=== PATIENT | female | born 1975 | race American Indian/Alaskan Native ===

== ENCOUNTER 2020-10-13 12:19 | Emergency (ER) | payer BC ==
--- NOTE | 2020-10-13 13:05 | Event Note ---
ED Screening Note Date of service: 10/13/20 Time: 13:04 ED Screening Note: 44-year-old female patient presents to the emergency department with complaints of subjective fever, nausea, and bilateral groin pain/swelling starting 3 days ago. Symptoms were preceded by sore throat, which has since resolved. Last menstrual period was September 27. General: Awake, appropriately interactive, no acute distress. Neck: Supple. Full range of motion intact. Cardiovascular: Normal peripheral perfusion. Pulmonary: No respiratory distress. Patient is speaking normally without use of accessory muscles. Skin: No apparent rashes or lesions. Neurological: No facial asymmetry. Speech is clear. Follows commands. Patient is alert and oriented. Musculoskeletal: Moves all four extremities spontaneously with normal range of motion. Psych: Cooperative. Appropriate mood and affect. Urinalysis and hCG ordered; decision to pursue further diagnostic work-up deferred to additional ED providers following comprehensive physical exam. I have greeted and performed a focused rapid initial assessment of this patient. A comprehensive ED assessment and evaluation of the patient, analysis of all test results, and completion of the medical decision-making process will be conducted by additional ED providers. This initial assessment/diagnostic orders/clinical plan/treatment(s) is/are subject to change based on patients health status, clinical progression and re-assessment. Further treatment and workup at subsequent clinical provider's discretion. Patient/guardian urged not to elope from the ED as their condition may be serious if not clinically assessed and managed.
[2020-10-13 14:42] LABS: Bilirubin,Urine NEG (Negative); Blood,Urine NEG (Negative); Color,Urine Yellow (Yellow); Mucus,Urine 2+ /HPF
[2020-10-13 14:43] LABS: HCG Qualitative,Urine Negative (Negative)
--- NOTE | 2020-10-13 17:15 | Emergency Department Report ---
ED General Adult HPI - General Chief complaint: Pain General Stated complaint: GROIN PAIN, ABD PAIN Time Seen by Provider: 10/13/20 16:51 Source: patient Mode of arrival: Ambulatory Limitations: No Limitations - History of Present Illness Initial comments: 44-year-old obese -[place] female [facility] emerge department complaining of initial pain to her adenoids with tonsillar lymphadenopathy and discomfort on yesterday which spontaneously resolved. Now she reports having suprapubic discomfort and and inguinal tenderness with some lymphadenopathy and flank pain. States the pain pain started earlier this morning followed by the urinary symptoms she reports no hematuria no fevers, chills, sweats, no palpitations, no chest pain. Severity scale (0 -10): 8 Consistency: constant Improves with: none Worsens with: none Associated Symptoms: denies: diaphoresis, fever/chills, rash, seizure, shortness of breath, syncope, weakness - Related Data Allergies Allergy/AdvReac Type Severity Reaction Status Date / Time No Known Allergies Allergy Unverified 10/13/20 12:51 ED Review of Systems ROS: Stated complaint: GROIN PAIN, ABD PAIN Other details as noted in HPI Comment: All other systems reviewed and negative ED Past Medical Hx - Past Medical History Previous Medical History?: Yes Hx Hypertension: Yes - Surgical History Past Surgical History?: Yes Hx Appendectomy: Yes Additional Surgical History: Tubaligation - Social History Smoking Status: Current Every Day Smoker Substance Use Type: Alcohol, Marijuana ED Physical Exam - General Limitations: No Limitations General appearance: alert, in no apparent distress - Head Head exam: Present: atraumatic, normocephalic - Eye Eye exam: Present: normal appearance - ENT ENT exam: Present: mucous membranes moist - Neck Neck exam: Present: normal inspection - Respiratory Respiratory exam: Present: normal lung sounds bilaterally. Absent: respiratory distress - Cardiovascular Cardiovascular Exam: Present: regular rate, normal rhythm. Absent: systolic murmur, diastolic murmur, rubs, gallop - GI/Abdominal GI/Abdominal exam: Present: soft, tenderness (. No Rovsing, no Reyes Gomez no note no Mehta sign no tenderness at McBurney's. No [place] sign), normal bowel sounds - Extremities Exam Extremities exam: Present: normal inspection - Back Exam Back exam: Present: normal inspection - Neurological Exam Neurological exam: Present: alert, oriented X3 - Psychiatric Psychiatric exam: Present: normal affect, normal mood - Skin Skin exam: Present: warm, dry, intact, normal color. Absent: rash ED Course Vital Signs 10/13/20 12:52 Temperature 98.2 F Pulse Rate 91 H Respiratory 18 Rate Blood Pressure 156/95 [Right] O2 Sat by Pulse 100 Oximetry ED Medical Decision Making - Medical Decision Making This patient presents with abdominal pain of unclear etiology. Their evaluation has not identified a emergent etiology for the abdominal pain. Specifically, given the very benign exam, normal laboratory studies, and lack of significant risk factors, I have a very low suspicion for appendicitis, ischemic bowel, bowel perforation, or any other life threatening disease. I have discussed with the patient the level of uncertainty with undifferentiated abdominal pain and clearly explained the need to follow-up as noted on the discharge instructions, or return to the Emergency Department immediately if the pain worsens, develops fever, persistent and uncontrollable vomiting, or for any new symptoms or concerns. I discussed with the patient that this presentation today for abdominal pain could represent a significant risk for an acute abdominal process. Although the tests in the ED were essentially normal, there is still a possibility of a process such as appendicitis, diverticulitis, cholecystitis, ulcer, early bowel obstruction, mesenteric ischemia, kidney stone, or even kidney infection which could subsequently cause disability or . The patient understands that they must return within 24 hours for a recheck or see their physician within 24 hours for re-exam due to the possibility of significant surgical or medical process. I did offer further testing to the Ms. Desai but she reports "she is appointment with her primary care provider on Thursday and if there is nothing life-threatening obviously. She would like to follow-up with them during that time Critical care attestation.: If time is entered above; I have spent that time in minutes in the direct care of this critically ill patient, excluding procedure time. ED Disposition Clinical Impression: Dysuria, Flank pain Disposition: - TO HOME OR SELFCARE Is pt being admited?: No Does the pt Need Aspirin: No Condition: Stable Instructions: Dysuria, Pain Without a Known Cause Additional Instructions: Please keep your follow-up appointment with your primary care provider and this coming Thursday for completion of your work-up. As offered today you are more than welcome to return should you feel that your condition is worsening to receive the remaining test which were discussed in the emergency department. Referrals: [facility] [Provider Group] - 3-5 Days
[2020-10-13 18:12] VITALS: BP 148/92
== END 2020-10-13 18:11 | disposition home or self-care (01) ==
LOC: ED 12:19
DX: R30.0 Dysuria (principal); R10.2 Pelvic and perineal pain; I10 Essential (primary) hypertension; F17.200 Nicotine dependence, unspecified, uncomplicated; F12.10 Cannabis abuse, uncomplicated; Z90.49 Acquired absence of other specified parts of digestive tract; Z98.51 Tubal ligation status
CPT/HCPCS: 81001; 81025